=== PATIENT | female | born 2000 | race Caucasian/White ===

== ENCOUNTER → 2021-02-07 10:35 | Outpatient (BNVA) | payer SELFPAY | PROVIDERS: Visit Provider Physician Assistant | DX: Z02.1 Encounter for pre-employment examination (principal) | CPT/HCPCS: 36415; 86481 ==

== ENCOUNTER 2021-07-10 17:56 | Emergency (ER) | payer OTHER, SELFPAY ==
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
[2021-07-10 18:53] VITALS: BP 116/75; PULSE 98; RESP 16; TEMP 36.7; O2SAT 98; BMI 25.8
== END 2021-07-10 19:05 | disposition home or self-care (01) ==
PROVIDERS: Emergency Provider Emergency Medicine
DX: Z04.2 Encounter for examination and observation following work accident (principal)
CPT/HCPCS: 99283

== ENCOUNTER → 2021-07-11 14:48 | Outpatient (BNVA) | payer OTHER, SELFPAY | PROVIDERS: Visit Provider Physician Assistant Medical | DX: Z13.89 Encounter for screening for other disorder (principal) | CPT/HCPCS: 70450; 70486; 99214 ==

== ENCOUNTER 2021-10-17 19:19 | Outpatient (REF) | payer OTHER, SELFPAY ==
[2021-10-17 19:46] LABS: COVID-19 Test Negative (Negative); IDNOW Serial# 9DD0AD1C
== END 2021-10-17 19:20 | disposition home or self-care (01) ==
LOC: HO.LAB 19:19
PROVIDERS: Visit Provider Internal Medicine
DX: Z20.822 Contact with and (suspected) exposure to COVID-19 (principal)
CPT/HCPCS: 87635; C9803